=== PATIENT | male | born 1985 | race African-American/Black ===

== ENCOUNTER 2019-07-03 11:37 | Emergency (ER) | payer SELFPAY ==
[2019-07-03 12:00] VITALS: BP 106/59
== END 2019-07-03 12:38 | disposition left against medical advice (07) ==
LOC: ER 11:37
DX: R11.10 Vomiting, unspecified (principal); Z53.21 Procedure and treatment not carried out due to patient leaving prior to being seen by health care provider

== ENCOUNTER 2019-07-11 16:50 | Emergency (ER) | payer SELFPAY ==
[~2019-07-11] VITALS: Ht 172.7 cm; Wt 65.8 kg
[2019-07-11 17:18] VITALS: BP 138/71
--- NOTE | 2019-07-11 17:40 | PHYS DOC ---
Past Medical History Past Medical History: No Pertinent History (JAMIL GEORGE APRN) Past Surgical History: No Surgical History (JAMIL GEORGE APRN) Alcohol Use: Occasionally Drug Use: None (JAMIL GEORGE APRN) Adult General Chief Complaint Chief Complaint: SHORTNESS OF BREATH [facility] HPI Patient is a 33 year old male who presents with shortness breath last about 20 minutes prior to arrival. He denies any pain at this time. States he also was mildly dizzy at the time of the shortness of breath. Denies any stressors currently his life. He says he had additional incident similar to weeks ago. (JAMIL GEORGE APRN) Review of Systems Review of Systems Constitutional: Denies fever or chills [] Eyes: Denies change in visual acuity, redness, or eye pain [] HENT: Denies nasal congestion or sore throat [] Respiratory: Reports shortness of breath. Denies cough.] Cardiovascular: No additional information not addressed in HPI [] GI: Denies abdominal pain, nausea, vomiting, bloody stools or diarrhea [] : Denies dysuria or hematuria [] Musculoskeletal: Denies back pain or joint pain [] Integument: Denies rash or skin lesions [] Neurologic: Reports dizziness. Denies headache, focal weakness or sensory changes [] Endocrine: Denies polyuria or polydipsia [] Complete systems were reviewed and found to be within normal limits, except as documented in this note. (JAMIL GEORGE APRN) Allergies Allergies Allergies Coded Allergies Type Severity Reaction Last Updated Verified No Known Drug Allergies 07/11/19 No (JAMIL CANTU DO) Physical Exam Physical Exam Constitutional: Well developed, well nourished, no acute distress, non-toxic appearance. [] HENT: Normocephalic, atraumatic, bilateral external ears normal, oropharynx moist, no oral exudates, nose normal. [] Eyes: PERRLA, EOMI, conjunctiva normal, no discharge. [] Neck: Normal range of motion, no tenderness, supple, no stridor. [] Cardiovascular:Heart rate regular rhythm, no murmur [] Lungs & Thorax: Bilateral breath sounds clear to auscultation [] Abdomen: Bowel sounds normal, soft, no tenderness, no masses, no pulsatile masses. [] Skin: Warm, dry, no erythema, no rash. [] Back: No tenderness, no CVA tenderness. [] Extremities: No tenderness, no cyanosis, no clubbing, ROM intact, no edema. [] Neurologic: Alert and oriented X 3, normal motor function, normal sensory function, no focal deficits noted. [] Psychologic: Affect normal, judgement normal, mood normal. [] (JAMIL GEORGE APRN) Current Patient Data Vital Signs Vital Signs Date Time Temp Pulse Resp B/P (MAP) Pulse Ox O2 Delivery O2 Flow Rate FiO2 07/11/19 17:18 98.1 80 16 138/71 (93) 100 Room Air 98.1 (CANTUJAMIL DO) EKG EKG [] (JAMIL GEORGE APRN) Radiology/Procedures Radiology/Procedures [][facility] [address] [place] [address] IMAGING REPORT Signed PATIENT: NENITA BOWENS ACCOUNT: [id number] : 1985 LOCATION: ER AGE: 33 SEX: M EXAM STATUS: REG ER ORD. PHYSICIAN: JAMIL GEORGE APRN REASON: SOB PROCEDURE: CHEST PA & LATERAL PA and lateral chest. HISTORY: Short of breath PA and lateral views were taken of the chest. Lungs are clear. Heart is normal in size. There is no pleural effusion. IMPRESSION: 1. No acute chest disease. Electronically signed by: Cici Rios MD (07/11/2019 6:08 PM) [id number] DICTATED and SIGNED BY: CICI RIOS MD DATE: 07/11/19 180 (JAMIL GEORGE APRN) Course & Med Decision Making Course & Med Decision Making Pertinent Labs and Imaging studies reviewed. (See chart for details) Will get Chest x-ray. Chest x-ray is unremarkable. Will d/c home to follow up with primary care. (JAMIL GEORGE APRN) Dragon Disclaimer Dragon Disclaimer This electronic medical record was generated, in whole or in part, using a voice recognition dictation system. (JAMIL GEORGE APRN) Departure Departure Impression: Primary Impression: Shortness of breath Disposition: HOME, SELF-CARE Condition: STABLE Referrals: NO PCP (PCP) Patient Instructions: Shortness of Breath Additional Instructions: Thank you for visiting [facility]. We appreciate you trusting us with your care. If any additional problems come up don't hesitate to return to visit us. Please follow up with your primary care provider so they can plan additional care if needed and know about the problem that you had. If symptoms worsen come back to the Emergency Department. Any concerning symptoms that start such as chest pain, shortness of air, weakness or numbness on one side of the body, running high fevers or any other concerning symptoms return to the ER. Attending Signature Attending Signature I have reviewed the PA/MARKETING AND DEVELOPMENT COORDINATOR's note and plan of care. I was available for consultation as needed during the patient's visit in the emergency department. I agree with the clinical impression, plan, and disposition. (JAMIL CANTU DO) JAMIL GEORGE APRN Jul 11, 2019 17:39 JAMIL CANTU DO Jul 15, 2019 19:06
--- NOTE | 2019-07-11 18:11 | RAD ---
PA and lateral chest. HISTORY: Short of breath PA and lateral views were taken of the chest. Lungs are clear. Heart is normal in size. There is no pleural effusion. IMPRESSION: 1. No acute chest disease. Electronically signed by: Yimi Rios MD (07/11/2019 6:08 PM) [id number]
== END 2019-07-11 18:43 | disposition home or self-care (01) ==
LOC: ER 16:50
DX: R06.02 Shortness of breath (principal); R42 Dizziness and giddiness
CPT/HCPCS: 71046; 99284